=== PATIENT | female | born 1945 | race Caucasian/White ===

== ENCOUNTER 2021-03-24 06:02 | Inpatient (IN) ==
--- NOTE | 2021-02-21 09:22 | PAT Medication Instructions ---
Medication Instructions Date of Service February 21, 2021 Home Medications Medication Instructions Recorded albuterol sulfate 90 mcg/actuation 2 puff INHALATION Q6H PRN #18 g 10/14/20 aerosol inhaler sotalol 80 mg tablet 80 mg PO BID #180 tab 12/20/20 metoprolol tartrate 50 mg tablet 50 mg PO BID #180 tab 02/01/21 multivitamin 1 tab PO QAM dextromethorphan-guaifenesin 30 mg-600 mg tablet extended [id number] hr 1 tab PO DAILY PRN cholestyramine (with sugar) 4 gram powder for susp in a packet 4 gm PO QAM ferrous sulfate 325 mg (65 mg iron) tablet 325 mg PO DAILY melatonin 10 mg capsule 10 mg PO HS PRN albuterol sulfate 90 mcg/actuation aerosol inhaler 2 puff INHALATION Q6H PRN sotalol 80 mg tablet 80 mg PO BID linaclotide 72 mcg capsule 72 mcg PO QAM PRN metoprolol tartrate 50 mg tablet 50 mg PO BID alprazolam 0.25 mg PO BID PRN azelastine 2 spray INTRANASAL HS bumetanide 1 mg PO UD cholecalciferol (vitamin D3) 4,000 unit PO QAM esomeprazole magnesium [Nexium] 20 mg PO QAM losartan 25 mg PO HS mupirocin 1 applic TOPICAL BID PRN rivaroxaban [Xarelto] 20 mg PO HS ASK your prescriber and surgeon rivaroxaban [Xarelto] 20 mg PO HS STOP taking 48 hours before surgery cholestyramine (with sugar) 4 gram powder for susp in a packet 4 gm PO QAM STOP taking 24 hours before surgery mupirocin 1 applic TOPICAL BID PRN DO NOT take the morning of surgery multivitamin 1 tab PO QAM dextromethorphan-guaifenesin 30 mg-600 mg tablet extended [id number] hr 1 tab PO DAILY PRN ferrous sulfate 325 mg (65 mg iron) tablet 325 mg PO DAILY linaclotide 72 mcg capsule 72 mcg PO QAM PRN bumetanide 1 mg PO UD cholecalciferol (vitamin D3) 4,000 unit PO QAM Take morning of surgery With a small sip of water, OTHERWISE NOTHING TO EAT OR DRINK AFTER MIDNIGHT: albuterol sulfate 90 mcg/actuation aerosol inhaler 2 puff INHALATION Q6H PRN (use if needed; please bring rescue inhaler with you to hospital day of surgery if possible) sotalol 80 mg tablet 80 mg PO BID metoprolol tartrate 50 mg tablet 50 mg PO BID alprazolam 0.25 mg PO BID PRN (if needed) esomeprazole magnesium [Nexium] 20 mg PO QAM Take evening before surgery dextromethorphan-guaifenesin 30 mg-600 mg tablet extended [id number] hr 1 tab PO DAILY PRN (if needed) melatonin 10 mg capsule 10 mg PO HS PRN (if needed) albuterol sulfate 90 mcg/actuation aerosol inhaler 2 puff INHALATION Q6H PRN (if needed) sotalol 80 mg tablet 80 mg PO BID linaclotide 72 mcg capsule 72 mcg PO QAM PRN (if needed) metoprolol tartrate 50 mg tablet 50 mg PO BID alprazolam 0.25 mg PO BID PRN (if needed) azelastine 2 spray INTRANASAL HS bumetanide 1 mg PO UD losartan 25 mg PO HS Other Notes If you have any questions please call us at [phone] or [phone] or [phone] or [phone]
--- NOTE | 2021-02-22 12:41 | Anesthesiology Consultation ---
Date of Service February 22, 2021 Assessment & Plan (1) Encounter for pre-operative examination: Chart Review Chart Review: Acceptable Risk for Surgery (pending cardio clearance 03/17, additional labs DOS for Blood Bank, and preop Covid testing ) and Patient seen in Pre Admission Testing - Awaiting cardio clearance scheduled 03/17/21. Will send message inquiring if any specific recommendations for pacemaker and shoulder surgery. Spoke to Blood Bank re: positive antibodies. Recommend patient come in an hour extra preoperatively on DOS for additional labs. Will bring in patient 2.5 hours prior to surgery. Blood Bank will have orders in system. Per PAT appt on 02/22/21, pt resides in [facility]. Traveled to [place], [place] to visit a friend 02/10/21 to 02/11/21. Wears proper PPE. No known Covid positive contacts or Covid related symptoms. No known Covid infection in the past 90 days. Preop Covid testing 03/17/21= will await results. Educated on importance of self quarantining, social distancing and wearing mask in public both for the patient and household contacts. Last seen by pulmonary 02/21/2021 = patient admits to increasing dyspnea when exerting self or bending overmay simply reflect 25 pound weight gain since last visit. History of COPDwe will prescribe maintenance inhaler. Weight reduction is critical over the next several months. We will repeat echo as well as PFTs when she is recovered from right shoulder arthroplasty and will reassess in March 2021. " Patient represents a mild to moderate risk for general anesthesia for upcoming right shoulder arthroplasty but is cleared to proceed and will need to be bridged with anticoagulant therapy perioperatively." Last seen by electrophysiology 08/15/2020 = dual-chamber pacemakerfully evaluated todayworking well with stable thresholds. Battery voltage remains adequate. A. fibinfrequent A. fib however it is increasing in frequency. Walker this time that is acceptable and patient seems unaware of it. Should remain on anticoagulation. Currently on Xarelto and doing well on it. Should discontinue it 48 hours prior to shoulder surgery. CAD. Aortic stenosisremains moderate and on exam it appears to be the same. This should not interfere with upcoming surgery. Would recommend repeat echocardiogram next year but for the moment no need to further evaluate. "With her upcoming surgery in October 2020 I do not think she needs further cardiac evaluation unless her symptoms change. She should stop her Xarelto 2 days before surgery." F/u in one year. (Pt's surgery was rescheduled from October 2020 until February 2021 secondary to Covid surge) Teaching & Discussion Pre-Anesthesia Teaching/Discussion Notes: Instructed NPO after midnight before surgery,except medications with 15 cc of water. Medication instructions provided according to the PAT guidelines. History Surgery Operation Date: 03/24/21 09:00 Proposed Procedures p Right Total Shoulder Arthroplasty Bryan - Bigg Young DO Height/Weight Height: 5 ft 9 in Weight: 117.3 kg Allergies Allergy/AdvReac Type Severity Reaction Status Date / Time apixaban [From Eliquis] Allergy Unknown Verified 02/21/21 10:06 ARMEN Inhibitors AdvReac Intermediate dry cough Verified 02/21/21 10:06 ampicillin AdvReac Intermediate Diarrhea Verified 02/21/21 10:06 Bdsnwiv-Wsq-Sku Reductase AdvReac Intermediate leg pain Verified 02/21/21 10:06 Inhibitor Medications Home Medications Medication Instructions Recorded Confirmed Last Taken multivitamin 1 tab PO QAM 06/15/19 02/22/21 Unknown dextromethorphan-guaifenesin 30 1 tab PO DAILY PRN tab 12/28/19 02/22/21 Unknown mg-600 mg tablet extended hr cholestyramine (with sugar) 4 gram 4 gm PO QAM ea 04/15/20 02/22/21 Unknown powder for susp in a packet ferrous sulfate 325 mg (65 mg 325 mg PO DAILY 06/06/20 02/22/21 Unknown iron) tablet melatonin 10 mg capsule 10 mg PO HS PRN 06/21/20 02/22/21 Unknown albuterol sulfate 90 mcg/actuation 2 puff INHALATION Q6H PRN #18 g 10/14/20 02/22/21 Unknown aerosol inhaler sotalol 80 mg tablet 80 mg PO BID #180 tab 12/20/20 02/22/21 Unknown linaclotide 72 mcg capsule 72 mcg PO QAM PRN cap 01/19/21 02/22/21 Unknown metoprolol tartrate 50 mg tablet 50 mg PO BID #180 tab 02/01/21 02/22/21 Unknown alprazolam 0.25 mg PO BID PRN 02/14/21 02/22/21 Unknown azelastine 2 spray INTRANASAL HS 02/14/21 02/22/21 Unknown bumetanide 1 mg PO UD 02/14/21 02/22/21 Unknown cholecalciferol (vitamin D3) 4,000 unit PO QAM 02/14/21 02/22/21 Unknown esomeprazole magnesium [Nexium] 20 mg PO QAM 02/14/21 02/22/21 Unknown losartan 25 mg PO HS 02/14/21 02/22/21 Unknown mupirocin 1 applic TOPICAL BID PRN 02/14/21 02/22/21 Unknown rivaroxaban [Xarelto] 20 mg PO HS 02/14/21 02/22/21 Unknown umeclidinium 62.5 mcg-vilanterol 1 inh INHALATION DAILY #60 ea 02/21/21 02/22/21 Unknown 25 mcg/actuation powdr for inhalation clindamycin HCl 300 mg capsule 600 mg PO ONCE cap 02/22/21 02/22/21 Unknown Past Medical History Medical History Anemia On iron supplement Aortic valve stenosis Moderate 05/04/20 ECHO= HORACE 1.0 cm; AV max PG 25.1 mmHg; AV max velocity 2.504 m/s Atrial fibrillation and flutter Hx of cardioversion x2. Has pacemaker currently. On Xarelto CAD (coronary artery disease) Previous catheterization September 2018 showed a 90% nondominant RCA stenosis and patient is on chronic anticoagulant therapy- no hx of cardiac stents or bypass Cardiac pacemaker Medtronic device. Placed secondary to SSS. Follows with Dr. Damian. Chronic obstructive pulmonary disease mild. follows Dr Hernandez Depression Generalized anxiety disorder GERD (gastroesophageal reflux disease) Well controlled and stable with Nexium History of anesthesia reaction severe anxiety s/p anesthesia. 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 which has a low potential for malignant transformation- has annual CT scans and follows routinely with ENT (Stable per ENT on 01/18/21- next CT scan of neck 09/2021) Pulmonary HTN Sick sinus syndrome hx Exercise / Class Metabolic Activity III < 4 Walking/Shop/Light housework (no chest pain or SOB with short distance flat surface ambulation - uses wheeled walker ) Past Family History Family History Mother Hypertension Coronary heart disease Breast cancer Cancer Heart disease Grandmother (Maternal) Breast cancer Grandmother (Paternal) Breast cancer Father Parkinson's disease Denies family history of Hearing loss No family history of adverse response to anesthesia No family history of bleeding disorder Allergies Stroke Asthma Past Surgical History Surgical History H/O colonoscopy H/O esophagogastroduodenoscopy H/O hernia repair History of D&C History of gastric bypass Lap Band surgery History of knee replacement left History of removal of laparoscopic gastric banding device Hx of breast biopsy Hx of cholecystectomy Hx of resection of meningioma early ~ Hx of tonsillectomy Pacemaker Insertion (2013) Past Anesthesia History No Hx of Anesthesia Complications (patient does tend to get anxious pre and post operatively ) and No Family Hx of Anesthesia Complications (with exception to mother- gets combative post op ) History of PONV No Hx of PONV and No Hx of Motion Sickness Social History Smoking Status: Former smoker tobacco type: cigarettes (smoked x 15 years ) Do You Dip or Chew Tobacco: No Smoking End Date: 1984 Hx Alcohol Use: Yes Alcohol type: wine alcohol intake frequency: a few times a month Hx Substance Use: No substance use type: does not use Review of Systems One episode of seizure prior to brain meningioma removal- no issues since Snoring- hx of sleep study- no TEENA Hx of blood transfusion 2019 secondary to anemia Patient denies chest pain, shortness of breath, dyspnea on exertion, cough, wheezing, palpitations. No hx of stroke, PR. No hx of blood clots. Physical Exam Vital Signs VITALS BP 118/74 P 61 TEMP 97.3 SP02 97% RESP 16 Constitutional no acute distress ENMT Mouth: no TMJ clicking Thyromental Distance: < 3.5 Finger Breadths (3.0) Mallampati Class: I Cap on molars Neck + thick neck; neck extension not limited Respiratory normal respiratory effort; no respiratory distress Auscultation: lungs clear to auscultation bilaterally; no wheezes Cardiovascular Rate/Rhythm: regular rate and regular rhythm Heart Sounds: + murmur (II-III/ murmur ) Vessels: no carotid bruit Musculoskeletal Spine: no pain with cervical ROM Extremities: extremities normal to inspection Psychiatric Orientation: alert Testing Laboratory Results 02/22/21 13:55 02/22/21 14:42 PT 11.7 Seconds (9.0-12.0) 02/22/21 13:55 INR 1.2 (0.9-1.1) H 02/22/21 13:55 APTT 33.3 Seconds (21.0-31.0) H 02/22/21 13:55 Blood Type B Positive 02/22/21 13:55 Antibody Screen POSITIVE A 02/22/21 13:55 Blood Bank aware of positive antibodies Electrocardiogram Date: 02/22/21 Atrial paced rhythm with prolonged AV conduction at 64 bpm. Incomplete right bundle branch block. Chest X-Ray Date: 02/17/21 Findings: + NAD The lungs are clear. There is left-sided dual-chamber pacemaker. The heart is normal in size. No pleural effusions. No pneumothorax. Mild emphysema, unchanged. There is a moderate hiatus hernia, unchanged. Skin tiffany seen with in the anterior abdominal wall. Echocardiogram Date: 05/04/20 EF: 55 to 60% LV Function: normal RWMA: + none Other Findings: + LVH (Mild/concentric) Valvular Disease: + MR (Mild to moderate) Left atrium mildly dilated. Right ventricle mildly dilated. Right atrium mildly dilated. Moderate aortic valvular stenosis. (HORACE 1.0 cm; AV max PG 25.1 mmHg; AV max velocity 2.504 m/s) Moderate TR. RVSP is elevated at >60 mmHg. (RVSP (TR)= 75.4 mmHg) Other Testing CT Soft Tissue of Neck with Contrast 10/05/20= There is an ovoid circumscribed anomaly hypodense mass of the left parapharyngeal space which measures 3.2 x 2.3 x 2.8 cm as measured in an oblique transverse, AP and craniocaudal dimensions. Prominent nonenlarged left supraclavicular lymph nodes. Low suspicion scattered biapical solid pulmonary nodules measure up to 3 mm.
[2021-02-22 15:14] LABS: BUN Creatinine Ratio 27.6 (10-20); Calcium 9.6 mg/dl (8.5-10.1); Creatinine Clr Calc Pharmacy 82.3 ml/min; Est GFR (African American) 81.7; Est GFR (Non-African American) 70.5; Potassium 4.3 mmol/L (3.5-5.1)
[2021-02-22 15:14] LABS: INR 1.2 (0.9-1.1); Partial Thromboplastin Ratio 1.3; Partial Thromboplastin Time 33.3 Seconds (21.0-31.0); Prothrombin Time 11.7 Seconds (9.0-12.0)
[2021-02-22 15:19] LABS: Basophils # (auto) 0.04 K/uL (0-0.2); Basophils % (auto) 0.5 %; Eosinophils # (auto) 0.13 K/uL (0-0.5); Eosinophils % (auto) 1.6 %; Hematocrit (blood only) 39.6 % (37-47); Hemoglobin 13.4 g/dL (12.0-16.0); Immature Granulocytes # (auto) 0.07 K/uL (0.00-0.02); Immature Granulocytes % (auto) 0.9 %; Lymphocytes # (auto) 1.56 K/uL (1.2-3.4); Lymphocytes % (auto) 19.2 %; Mean Corpuscular Hemoglobin 30.5 pg (25-34); Mean Corpuscular Hgb Conc 33.8 g/dL (32-36); Mean Platelet Volume 11.6 fL (7.4-10.4); Monocytes # (auto) 0.56 K/uL (0.11-0.59); Monocytes % (auto) 6.9 %; Neutrophils # (auto) 5.78 K/uL (1.4-6.5); Neutrophils % (auto) 70.9 %; Platelet Count 345 K/uL (130-400); RDW Coefficient of Variation 14.3 % (11.5-14.5); RDW Standard Deviation 47.1 fL (36.4-46.3); White Blood Count 8.14 K/uL (4.8-10.8)
--- NOTE | 2021-02-22 16:28 | Electrocardiogram Report ---
Test Reason : Blood Pressure : / mmHG Vent. Rate : 064 BPM Atrial Rate : 064 BPM P-R Int : 218 ms QRS Dur : 110 ms QT Int : 456 ms P-R-T Axes : 076 -25 045 degrees QTc Int : 470 ms Atrial-paced rhythm with prolonged AV conduction Incomplete right bundle branch block Abnormal ECG No previous ECGs available Confirmed by Omar Gonzalez ([id number]) on 02/22/2021 4:28:37 PM Referred By: Bigg Young Confirmed By:Omar Gonzalez
--- NOTE | 2021-03-23 12:45 | History & Physical Report ---
Date of Service March 23, 2021 Assessment & Plan (1) Osteoarthritis of right shoulder: We will proceed with a right reverse shoulder arthroplasty. Postoperatively she will be started back on her Xarelto and kept overnight in the hospital for postoperative medical management. She plans to use energy physical therapy upon discharge. History of Present Illness Chief Complaint: Advanced osteoarthritis of the right shoulder . Primary Care Provider: Velma Burns MD Karis is a pleasant 75-year-old female who has been dealing with chronic incr easing right shoulder pain. X-rays and clinical examination have been diagnostic for advanced osteoarthritis of the right shoulder. After failing years of conservative treatment, she has elected proceed with a right reverse total shoulder arthroplasty. . Allergies Allergy/AdvReac Type Severity Reaction Status Date / Time apixaban [From Eliquis] Allergy Unknown Verified 03/17/21 10:59 ARMEN Inhibitors AdvReac Intermediate dry cough Verified 03/17/21 10:59 ampicillin AdvReac Intermediate Diarrhea Verified 03/17/21 10:59 Ozoxzou-Tsk-Axh Reductase AdvReac Intermediate leg pain Verified 03/17/21 10:59 Inhibitor Home Medications Medication Instructions Recorded Confirmed Type multivitamin 1 tab PO QAM 06/15/19 03/17/21 History dextromethorphan-guaifenesin 30 1 tab PO DAILY PRN tab 12/28/19 03/17/21 History mg-600 mg tablet extended [id number] hr cholestyramine (with sugar) 4 gram 4 gm PO QAM ea 04/15/20 03/17/21 History powder for susp in a packet ferrous sulfate 325 mg (65 mg 325 mg PO DAILY 06/06/20 03/17/21 History iron) tablet melatonin 10 mg capsule 10 mg PO HS PRN 06/21/20 03/17/21 History albuterol sulfate 90 mcg/actuation 2 puff INHALATION Q6H PRN #18 g 10/14/20 03/17/21 Rx aerosol inhaler sotalol 80 mg tablet 80 mg PO BID #180 tab 12/20/20 03/17/21 Rx metoprolol tartrate 50 mg tablet 50 mg PO BID #180 tab 02/01/21 03/17/21 Rx alprazolam 0.25 mg PO BID PRN 02/14/21 03/17/21 History azelastine 2 spray INTRANASAL HS 02/14/21 03/17/21 History bumetanide 1 mg PO UD 02/14/21 03/17/21 History cholecalciferol (vitamin D3) 4,000 unit PO QAM 02/14/21 03/17/21 History esomeprazole magnesium [Nexium] 20 mg PO QAM 02/14/21 03/17/21 History mupirocin 1 applic TOPICAL BID PRN 02/14/21 03/17/21 History rivaroxaban [Xarelto] 20 mg PO HS 02/14/21 03/17/21 History umeclidinium 62.5 mcg-vilanterol 1 inh INHALATION DAILY #60 ea 02/21/21 03/17/21 Rx 25 mcg/actuation powdr for inhalation losartan 25 mg tablet 25 mg PO HS #90 tab 03/08/21 03/17/21 Rx clindamycin HCl 300 mg capsule 600 mg PO ONCE PRN cap 03/13/21 03/17/21 History Past Med/Surg History Medical History Allergic rhinitis due to allergen Anemia On iron supplement Aortic valve stenosis Moderate 05/04/20 ECHO= HORACE 1.0 cm; AV max PG 25.1 mmHg; AV max velocity 2.504 m/s Atrial fibrillation and flutter Hx of cardioversion x2. Has pacemaker currently. On Xarelto CAD (coronary artery disease) Previous catheterization September 2018 showed a 90% nondominant RCA stenosis and patient is on chronic anticoagulant therapy- no hx of cardiac stents or bypass Cardiac pacemaker Medtronic device. Placed secondary to SSS. Follows with Dr. Damian. Chronic obstructive pulmonary disease mild. follows Dr Hernandez Depression Generalized anxiety disorder GERD (gastroesophageal reflux disease) Well controlled and stable with Nexium History of anesthesia reaction severe anxiety s/p anesthesia. History of basal cell carcinoma S/p removal Hx of meningioma of the brain S/p surgical resection Hyperlipidemia Hyperparathyroidism Hypertension IBS (irritable bowel syndrome) Migraine hx Nocturnal hypoxemia On anticoagulant therapy On home oxygen therapy 2lpm via n/c q HS Osteopenia Osteoporosis Parapharyngeal space mass Has been biopsied in the past with a diagnosis of a pleomorphic adenoma which has a low potential for malignant transformation- has annual CT scans and follows routinely with ENT (Stable per ENT on 01/18/21- next CT scan of neck 09/2021) Perforation of tympanic membrane Pulmonary HTN Sick sinus syndrome hx Sinusitis nasal Surgical History H/O colonoscopy H/O esophagogastroduodenoscopy H/O hernia repair History of D&C History of gastric bypass Lap Band surgery History of knee replacement left History of removal of laparoscopic gastric banding device Hx of breast biopsy Hx of cholecystectomy Hx of resection of meningioma early ~1999' Hx of tonsillectomy Pacemaker Insertion (2014) Family History Mother Hypertension Coronary heart disease Breast cancer Cancer Heart disease Grandmother (Maternal) Breast cancer Grandmother (Paternal) Breast cancer Father Parkinson's disease Denies family history of Hearing loss No family history of adverse response to anesthesia No family history of bleeding disorder Allergies Stroke Asthma Social History Smoking Status: Former smoker Second Hand Exposure: No; Hx Alcohol Use: Yes Alcohol type: wine Alcohol Intake Frequency Comment: Has a glass of wine every night per patient Hx Substance Use: No Preferred Language: Sami Communication Ability: Effective Visual Impairment: Partially Limited Hearing Ability: Use of Hearing Aid [employer] Required: No Beliefs That Will Affect Care: None marital status: / Current Living Situation: Alone Current Living Situation Comment: [facility] current occupational status: retired How many Children do You have: 0 Feels Safe at Home: Yes Childhood Exposure to Second-Hand Smoke: Yes during the past year weight has: increased > 10 lbs Dental Care, Regularly: Yes Physical Activity Frequency: Daily Physical Activity Frequency Comment: walking Seatbelt Use: always Sunscreen Use: No Assistive Devices: Glasses, Hearing Aid - Right, Oxygen - at Night and Walker Review of Systems All systems reviewed & are unremarkable except as noted in HPI & below. Physical Exam On physical examination of the right shoulder, she has about 130 degrees forward elevation 130 degrees of abduction. She has 4+ out of 5 motion with full can testing 5 5 motion with external rotation. She has crepitus throughout range of motion. . Constitutional WD/WN, vitals as above Eyes PERRL, conjunctivae normal, anicteric sclerae ENMT external ear and nose normal, oropharynx normal Neck trachea midline, no thyromegaly Respiratory normal respiratory effort Cardiovascular RRR, no murmur, no edema Gastrointestinal (Abdomen) normal bowel sounds, soft, nontender, no hepatosplenomegaly Psychiatric A+Ox3, euthymic affect Results & Data Results & Data Laboratory Results . Diagnostic Findings X-rays of the right shoulder do show advanced osteoarthritis with joint space narrowing, osteophyte formation, and [id number]-gg-psoy articulation . PG Care Time/CCT Total # of Minutes Spent Total Time Spent with Patient: Total time spent is greater than 50% in coordination of care (as documented) at patient's floor/unit and/or counseling patient: Coding Level of Care Code None Diagnoses Osteoarthritis of right shoulder M19.011
[~2021-03-24 06:02] MED LIST: ACETAMINOPHEN 500 MG TAB PO SCH; FAMOTIDINE 20 MG TAB PO SCH; GABAPENTIN 300 MG CAP PO SCH; LR 15ML/HR IV SCH; LR 60ML/HR IV SCH; ROPIVACAINE 0.5% HCL/PF 150 MG, BUPIVACAINE 0.75% MPF 20 ML, EPINEPHrine 30MG/30ML (OR ... INSTIL SCH; TRANEXAMIC ACID 1,000 MG **IV Intra-op IV SCH; TRANEXAMIC ACID 1,000 MG **IV Pre-op IV SCH; dexAMETHasone 4 MG TAB PO SCH
--- NOTE | 2021-03-24 06:39 | History & Physical Bridge Note ---
Date of Service March 24, 2021 History & Physical Bridge Note I have examined the patient, reviewed the History & Physical and in the interval since the performance of the History & Physical I have noted the following changes of clinical significance: no changes noted
[2021-03-24] MEDS ORDERED: ORTHO JOINT ANESTHETIC ONE (07:00)
[2021-03-24] MEDS ORDERED: BUPIVACAINE 0.5 % 5 MG/1 ML PF 10ML VIAL ONE (07:06)
[2021-03-24] MEDS ORDERED: DEXAMETHASONE SOD INJ 4 MG/ML VIAL ONE (07:19)
[2021-03-24] MEDS ORDERED: fentaNYL citrate 100 MCG/2 ML VIAL ONE (07:19)
[2021-03-24] MEDS ORDERED: PROPOFOL IV EMULSION 10 MG/ML 20 ML VIAL IV ONE (07:19)
[2021-03-24] MEDS ORDERED: ONDANSETRON INJ 2 MG/ML 2 ML VIAL ONE (07:19)
[2021-03-24] MEDS ORDERED: MIDAZOLAM HCL 1 MG/ML 2ML VIAL ONE (07:19)
[2021-03-24] MEDS ORDERED: LIDOCAINE 2% 2 ML VIAL/AMP(20MG/ML) INFIL ONE (07:19)
[2021-03-24] MEDS ORDERED: ATROPINE SULFATE 0.1 MG/ML 10ML SYR IV PRN (07:39)
[2021-03-24] MEDS ORDERED: ALBUTEROL 0.083% NEBU SOLN 3 ML VIAL INH PRN (07:39)
[2021-03-24] MEDS ORDERED: ONDANSETRON INJ 2 MG/ML 2 ML VIAL IV PRN ×2 (07:39→10:46)
[2021-03-24] MEDS ORDERED: HYDROmorphone INJ 1 MG/ML SYRINGE IV PRN (07:39)
[2021-03-24] MEDS: ceFAZolin 2000MG 2,000 MG/15 ML SYR IV SCH ×3 (07:49→23:53)
--- NOTE | 2021-03-24 09:04 | Operative Report ---
PG Post Operative Report Pre & Post Diagnosis Operation Date: 03/24/21 08:10 Pre-Op Diagnosis: Right Shoulder, Degenerative Joint Disease Post-Op Diagnosis: Right Shoulder, Degenerative Joint Disease I identified the patient and participated in the time-out.: Yes Procedure Operation Date: 03/24/21 08:10 Actual Procedures p Right Total Shoulder Arthroplasty Reverse(Right) - Bigg Young DO Surgeon Bigg Young DO Clinical Ob Bigg Peacock PAC Estimated Blood Loss 200 Findings Consistent with Post-Op Diagnosis Specimens Right humeral head Complications none Disposition Disposition: Recovery Room Indications Abdi is a pleasant 75-year-old female who is been dealing with chronic increasing right shoulder pain. X-rays and clinical examination have been diagnostic for advanced osteoarthritis of the right shoulder. After failing conservative eva atment, she has elected to proceed with a right reverse shoulder arthroplasty. Description of Procedure A CPT code modifier 59: The long head of the biceps tendon was enlarged and inflamed consistent with tendinopathy. A tenodesis was opted. This was a separate and distinct portion of the procedure. For these reasons, a CPT code modifier 59 will be added to this case. Implants used: I used a [employer] Comprehensive reverse total shoulder arthroplasty system with a size 12 press fit micro humeral stem, a +3 humeral tray and a standard humeral bearing, a 25 mm medium augment baseplate with a 6.5 mm central screw and superior and inferior locking screws, and a size 40 mm eccentric glenosphere. Abdi arrived at [facility] for the above procedure. She was seen in the preoperative holding area and the operative extremity was identified and signed. She was given a preoperative antibiotic, TXA, and an interscalene nerve block. She was taken back to the operating room, laid on table in supine position, and put under general anesthesia. She was then put into the beachchair position. The shoulder was then prepped and draped in sterile fashion. A timeout was done and the patient and the operative extremity was properly identified. A deltopectoral approach was used. Dissection was taken down through the fascia and the deltoid was retracted laterally and the conjoined tendon was retracted medially. The anterior shoulder was exposed. The biceps groove was opened up and the biceps tendon was examined extensively. The biceps tendon demonstrated enlargement and inflammatory changes consistent with longstanding inflammation in the context of osteoarthritis and cuff arthropathy. The long head of the biceps tendon was then tenodesed to the upper border of the pectoralis major. This was a separate and distinct portion of the procedure. The subscapularis was then directly released off the lesser tuberosity with a peel technique. The inferior capsule was released and the humeral head was dislocated. A canal finding reamer was sent down the center of the humeral canal. Se quential reaming up to a size 12 reamer was done. Off that reamer, a proximal humeral resection guide was placed. The proximal humerus was resected at 135 of inclination and 25 of retroversion. Osteophytes were then removed and the glenoid was exposed. Time was spent doing a complete capsular and labral release. A Mozenda Signature One guide was then attached onto the anterior rim of t he glenoid. A 3.2 mm Steinmann pin was then placed in the reverse total shoulder arthroplasty hole. The glenoid baseplate was then reamed. The final size 25 mm small augment baseplate was then impacted in the place. A 6.5 mm central screw was then placed followed by superior and inferior locking screws. A 40 mm eccentric glenosphere was then impacted into place. Surrounding soft tissues were then injected with 100 cc an orthopedic pain control cocktail. The proximal humerus was then exposed. Sequential broaching of the humerus up to a size 12 broach was done. Off that broach a +3 offset humeral tray was trialed. The shoulder was then reduced, brought through a full range of motion, and felt to be stable. The shoulder was then dislocated and the broach was removed. The final size 12 micro press-fit humeral stem was then impacted into place. A standard humeral bearing was then snapped onto a +3 offset humeral tray. The humeral tray was then impacted onto the humeral stem. The shoulder was once again reduced, brought through a full range of motion, and felt to be stable. The subscapularis was then tenodesed back to the lesser tuberosity with transosseous FiberWire sutures and side to side sutures with the arm in 45 of external rotation. A dilute betadyne lavage was then done for 3 minutes. The joint was then irrigated with normal saline solution. Hemostasis was obtained. The interval was closed with 2-0 Vicryl suture. The skin was then closed with 2-0 Vicryl and tiffany. A Silverlon dressing was placed and the arm was rested in a regular arm sling. She was then extubated and transferred to a hospital bed. She taken to the postanesthesia care unit in stable condition. She tolerated the procedure well. Bigg Peacock PA-C, was present for the entire procedure. He was critical for patient positioning, prepping, draping, retraction exposure, wound closure and application of sterile dressing. I attest to the content of the Intraoperative Record and any orders documented therein. Any exceptions are noted below.
[2021-03-24] MEDS ORDERED: ETOMIDATE 2 MG/ML 20 ML VIAL IV ONE (09:05)
[2021-03-24] MEDS ORDERED: PHENYLEPHRINE 100MCG/ML 5ML SYR ONE (09:05)
--- NOTE | 2021-03-24 09:57 | XRay Report ---
XR shoulder RT min 2V routine CLINICAL HISTORY: Post shoulder surgery COMPARISON: CT scan dated 02/14/2021 DISCUSSION: There are postsurgical changes of a reverse total right shoulder arthroplasty. There is n o dislocation. There is gas present within the soft tissues. IMPRESSION: Postsurgical changes of a reverse total right shoulder arthroplasty. ACT 112: Negative or not required by law. Electronically signed by: Jean Pierre Chou M.D. 03/24/2021 9:55 AM
--- NOTE | 2021-03-24 10:02 | Anesthesiology Progress Note ---
Date of Service March 24, 2021 Anesthesia Post Procedure Vital Signs Vital Signs: Temp Pulse Pulse Resp BP Pulse Ox 03/24/21 09:55 60 17 120/78 100 03/24/21 09:45 60 13 124/61 100 03/24/21 09:35 60 15 131/85 100 03/24/21 09:25 36.1 C L 63 22 141/76 H 100 03/24/21 06:27 36.6 C 80 20 152/70 H 94 Pain Intensity Right Shoulder: Pain Intensity: 0 Transfer of Care Handoff Completed per policy Notes Mental Status: alert / awake / arousable Patient Amnestic to Procedure: Yes Nausea / Vomiting: adequately controlled Pain: adequately controlled Airway Patency, RR, SpO2: stable & adequate BP & HR: stable & adequate Hydration State: stable & adequate Anesthetic Complications: no major complications apparent
[2021-03-24] MEDS ORDERED: ALBUTEROL HFA 8 GM INHALER INH PRN (10:46)
[2021-03-24] MEDS ORDERED: oxyCODONE HCL IR 5 MG TAB (IMMEDIATE RELEASE) PO PRN (10:46)
[2021-03-24] MEDS ORDERED: NALOXONE HCL 0.4 MG/1 ML VIAL/CARP IV PRN (10:46)
[2021-03-24] MEDS ORDERED: MAGNESIUM HYDROXIDE SUSP 30 ML UDC PO PRN (10:46)
[2021-03-24] MEDS ORDERED: ALPRAZolam 0.25 MG TABLET PO PRN (10:46)
[2021-03-24] MEDS ORDERED: METOCLOPRAMIDE HCL INJ 5 MG/ML 2 ML VIAL IV PRN (10:46)
[2021-03-24] MEDS ORDERED: bisacodyL 10 MG SUPP PR PRN (10:46)
[2021-03-24] MEDS ORDERED: HYDROmorphone INJ 0.5 MG/0.5 ML SYR IV PRN (10:46)
[2021-03-24] MEDS ORDERED: MUPIROCIN 2% OINT 22 GM TUBE EXT PRN (11:02)
[2021-03-24] MEDS: KETOROLAC TROMETHAMINE 15 MG/ML VIAL IV SCH ×3 (11:45→23:53)
[2021-03-24] MEDS: SODIUM CHLORIDE 0.9% 1000ML 1,000 ML IV SCH ×2 (11:48→21:13)
[2021-03-24] MEDS ORDERED: BUMETANIDE 1 MG TAB PO SCH (12:00)
[2021-03-24] MEDS: ACETAMINOPHEN 500 MG TAB PO SCH ×2 (13:10→21:18)
[2021-03-24] MEDS: *AZELASTINE*ORDER AWAITING ACTION SCH ×2 (17:50→23:53)
[2021-03-24] MEDS: DOCUSATE SODIUM 100 MG CAP PO SCH (20:53)
[2021-03-24] MEDS ORDERED: SENNA 8.6 MG TAB PO SCH (21:00)
[2021-03-24] MEDS ORDERED: LOSARTAN POTASSIUM 25 MG TAB PO SCH (21:00)
[2021-03-24] MEDS: METOPROLOL TARTRATE 50 MG TAB PO SCH (21:16)
[2021-03-24] MEDS: SOTALOL HCL 80 MG TAB PO SCH (21:17)
[2021-03-25] MEDS: ACETAMINOPHEN 500 MG TAB PO SCH (06:02)
[2021-03-25] MEDS: KETOROLAC TROMETHAMINE 15 MG/ML VIAL IV SCH (06:04)
--- NOTE | 2021-03-25 07:13 | Orthopedic Progress Note ---
Date of Service March 25, 2021 Assessment & Plan (1) Status post reverse total replacement of right shoulder: Overall she is doing very well. She is not having much pain in the right shoulder. She will be seen by physical therapy today for ambulation and range of motion exercises. She can be discharged home later today. She will follow- up with orthopedics in 2 weeks. Subjective Joi was seen and examined at bedside this morning. Overall she is doing very well. She is not any pain in the right shoulder. She was able to get some sleep last night. She has no complaints.. Review of Systems All systems reviewed & are unremarkable except as noted in HPI & below. Physical Exam On physical examination of the right shoulder, the dressing is clean and dry. Her radial, median, and ulnar nerves are checked intact at her wrist. Her axillary nerve was not checked yet.. Results & Data Results & Data Laboratory Results . Diagnostic Findings Postoperative x-rays of the right shoulder show the prosthesis to be in anatomic alignment without any evidence of fracture, dislocation, or loosening. PG Care Time/CCT Total # of Minutes Spent Total Time Spent with Patient: Total time spent is greater than 50% in coordination of care (as documented) at patient's floor/unit and/or counseling patient: Coding Level of Care Code 72341 Post Operative Follow-Up Diagnoses Status post reverse total replacement of right shoulder Z96.611
--- NOTE | 2021-03-25 07:15 | Discharge Summary ---
Date of Service March 25, 2021 Admission HPI (Per Admitting) Karis is a pleasant 75-year-old female who has been dealing with chronic increasing right shoulder pain. X-rays and clinical examination have been diagnostic for advanced osteoarthritis of the right shoulder. After failing years of conservative treatment, she has elected proceed with a right reverse total shoulder arthroplasty. . Admission Exam (Per Admitting) On physical examination of the right shoulder, she has about 130 degrees forward elevation 130 degrees of abduction. She has 4+ out of 5 motion with full can testing 5 5 motion with external rotation. She has crepitus throughout range of motion. . Principal Diagnosis Same as "Discharge Diagnosis" noted below under Discharge Instructions. Discharge Exam On physical examination of the right shoulder, the dressing is clean and dry. Her radial, median, and ulnar nerves are checked intact at her wrist. Her axillary nerve was not checked yet.. Discharge Data Procedures Performed Operation Date: 03/24/21 08:10 Actual Procedures p Right Total Shoulder Arthroplasty Reverse(Right) - Bigg Young DO Ordered Studies 03/24/21 05:00 US - OR guided needle placemen Routine Hospital Course (1) Status post reverse total replacement of right shoulder: On March 24, 2021 Adriana arrived at [facility] and underwent a right reverse shoulder arthroplasty without complication. She had a general anesthetic and a right interscalene nerve block. Postoperatively she was placed in an arm sling and transferred to the general orthopedic floors. Her hospital course was uneventful. On postop day #1 her vital signs were stable and her pain was well controlled. She was able to participate well with physical therapy doing ambulation and range of motion exercises. She was then discharged home. She will follow-up with orthopedics in 2 weeks. PG Care Time/CCT Total # of Minutes Spent Total Time Spent with Patient: Total time spent is greater than 50% in coordination of care (as documented) at patient's floor/unit and/or counseling patient: Discharge Plan Discharge Items Patient Disposition: Home - Home Health Services Reason For Visit: Right Shoulder, Degenerative Joint Disease Discharge Diagnosis: Right reverse shoulder replacement Activity: As commented below Non-emergency contact: Surgeon Call non-emergency contact if: your wound has increased redness and your wound has increased drainage Follow-up/Referrals: Velma Burns MD [Primary Care Provider] - Diet: Regular Addtl Attending Provider Instructions: Activity and Therapy Recommendations: * If you are using [facility] then therapy will be provided at your home until they feel you have accomplished all of your goals. * If you are using [facility] then Physical Therapy will be provided until they feel you are ready to start Outpatient Physical Therapy. * If you are not using home therapy then Outpatient Physical Therapy should start about 3-5 days from your day of surgery. Therapy will last about 8-12 weeks * Wear your sling for 3 weeks, unless otherwise instructed. You may remove your sling to shower and to dress, but otherwise, you should be in your sling at all times, including while sleeping * The shoulder replacement is very stable and you can use your hand while in the sling * You were shown a series of exercises in the hospital. Do these exercises daily including the exercises you were shown in physical therapy. Medications: * Narcotic You will likely be sent home from the hospital with a prescription for the narcotic pain medication that worked best throughout your stay. * Other medications may be prescribed for specific circumstances. If you have any questions, please call the office at . * Resume previous home medications unless otherwise instructed Dressing Care: Leave the Silverlon dressing in place for 7 days. After 7 days you may remove the dressing. If the incision is not draining then you may leave the tiffany open to air. If there is a little bit of drainage or if the tiffany are getting stuck on your clothing then cover the incision with a dry dressing. The tiffany will be removed at your 2 week follow-up appointment. Showering: You may shower with the Silverlon dressing in place. Do not let the shower spray hit the dressing directly. Pat the Silverlon dressing dry. If the dressing becomes wet underneath, then simply remove the dressing. Keep the incision dry until you are 7 days out from the day of surgery. After 7 days you may remove the Silverlon dressing and shower with the tiffany exposed. Let soapy water run over the tiffany and pat them dry. Do not scrub or soak the incision. Things To Watch For: * Drainage from the incision site that occurs more than one week after your surgery. * Increased redness at the incision site. * Fever above 102 degrees Fahrenheit. * Unusual chest pain or shortness of breath. * Call [facility] at with any of the above pro blems Follow-Up Visit: Follow-up with Dr. Young's PA (Bigg Peacock) 2-3 weeks after your day of surgery. He will remove your tiffany and answer any questions. If you have any additional questions or concerns, Dr Young is usually in the office at the same time and will be available An appointment was probably scheduled when you signed-up for surgery in the office. If you have any questions call More detailed instructions as well as Frequently Asked Questions were provided in a folder by our office when you signed-up for surgery. Please review these instructions when you get home. If you have any further questions or concerns, please feel free to call the office at [phone] Pending Studies at Discharge: No Stand-Alone Forms: My [facility] Exam Prep Platform, Smoking Cessation Medications and DC Order Prescriptions: New oxycodone 5 mg Tablet 5 mg PO Q4H PRN (Reason: pain) Qty: 30 RF: 0 Continued albuterol sulfate 90 mcg/actuation HFA aerosol inhaler 2 puff inhalation Q6H PRN (Reason: shortness of breath or wheezing) Qty: 18 RF: 5 sotalol 80 mg tablet 80 mg PO BID Qty: 180 RF: 3 metoprolol tartrate 50 mg tablet 50 mg PO BID Qty: 180 RF: 3 losartan 25 mg tablet 25 mg PO HS Qty: 90 RF: 3 multivitamin [Daily Multi-Vitamin] tablet 1 tab PO QAM RF: 0 Mucinex DM 30-600 mg tablet extended release 12 hr 1 tab PO DAILY PRN (Reason: chest congestion) RF: 0 cholestyramine (with sugar) 4 gram powder in packet 4 gm PO QAM RF: 0 ferrous sulfate 325 mg (65 mg iron) tablet 325 mg PO DAILY RF: 0 clindamycin HCl 300 mg capsule 600 mg PO ONCE PRN (Reason: PROPHYLAXIS) RF: 0 melatonin 10 mg capsule 10 mg PO HS PRN (Reason: Sleep) RF: 0 Anoro Ellipta 62.5-25 mcg/actuation blister with device 1 inh inhalation DAILY Qty: 60 RF: 2 esomeprazole magnesium [Nexium] 20 mg Capsule,Delayed Release(Dr/Ec) 20 mg PO QAM RF: 0 alprazolam 0.25 mg tablet 0.25 mg PO BID PRN (Reason: anxiety) RF: 0 bumetanide 1 mg tablet 1 mg PO UD RF: 0 mupirocin 2 % ointment 1 applic topical BID PRN (Reason: nasal dryness) RF: 0 azelastine 137 mcg (0.1 %) aerosol,spray 2 spray intranasal HS RF: 0 Xarelto 20 mg tablet 20 mg PO HS RF: 0 cholecalciferol (vitamin D3) 100 mcg (4,000 unit) capsule 4,000 unit PO QAM RF: 0 acetaminophen [Tylenol Extra Strength] 500 mg Tablet 1,000 mg PO Q6H PRN (Reason: Pain, Moderate) RF: 0 Discharge Orders: Discharge Order (Routine); Ordered 03/25/21 Ordered By: Bigg Young Admission Data Admit Date/Time: 03/24/21 09:25 Attending Provider: Bigg Young Admit Provider: Bigg Young Primary Care Provider: Velma Burns
[2021-03-25] MEDS ORDERED: dexAMETHasone 4 MG TAB PO SCH (08:00)
[2021-03-25] MEDS ORDERED: RIVAROXABAN 20 MG TAB PO SCH (08:00)
[2021-03-25] MEDS: *AZELASTINE*ORDER AWAITING ACTION SCH (08:31)
[2021-03-25] MEDS: DOCUSATE SODIUM 100 MG CAP PO SCH (08:32)
[2021-03-25] MEDS: METOPROLOL TARTRATE 50 MG TAB PO SCH (08:33)
[2021-03-25] MEDS: SOTALOL HCL 80 MG TAB PO SCH (08:33)
[2021-03-25] MEDS ORDERED: BUMETANIDE 1 MG TAB PO SCH (09:00)
[2021-03-25] MEDS ORDERED: MULTIVITAMIN TAB PO SCH (09:00)
[2021-03-25] MEDS ORDERED: UMECLIDINIUM/VILANTEROL 62.5/25MCG 7 PUFFS/INHALER INH SCH (09:00)
== END 2021-03-25 10:55 | disposition home health service (06) | DRG 483 ==
LOC: PAT 06:02 → 3E 09:25